=== PATIENT | female | born 1995 | race Caucasian/White ===

== ENCOUNTER → 2017-07-04 11:03 | Outpatient (CLI) | payer OTHER, SELFPAY ==
--- NOTE | 2017-07-04 11:30 | MRI_ITS ---
STUDY: MRI RIGHT KNEE REASON FOR EXAM: Medial right knee pain, history of remote patellar dislocations. TECHNIQUE: Standardized fat and water weighted pulse sequences were obtained in all 3 orthogonal planes. COMPARISON: Radiographs 05/19/2017. FINDINGS: Normal medial meniscus. Normal hyaline cartilage of the medial femorotibial compartment. Normal medial femoral condyle and tibial plateau. Normal medial collateral ligamentous complex (MCL). Normal distal semimembranosus, gracilis and semitendinosus tendons. Normal lateral meniscus. Normal hyaline cartilage of the lateral femorotibial compartment. Normal lateral femoral condyle and tibial plateau. Normal proximal tibiofibular articulation. Normal lateral collateral (fibular) ligament. Normal popliteus tendon. Normal biceps femoris tendon. Normal anterior cruciate ligament (ACL). Normal posterior cruciate ligament (PCL). Normal congruent patellofemoral articulation. Normal hyaline cartilage of the patellofemoral compartment. Normal medial and lateral patellar retinaculum. Normal quadriceps tendon. Normal patellar tendon. Normal Hoffa's fat pad. There is a small joint effusion. There is a small thin medial patellar plica. There is mild edema in the anterior subcutis adipose space. The otherwise visualized osseous structures are unremarkable. MRI/Lower Ext Joint Only (Routine) IMPRESSION: Small joint effusion. No demonstrated medial meniscal tear/internal derangement. Electronically Signed: Amrik Garcia MD at 12:40 EST Tel , Service support ,
== END ==
PROVIDERS: Family Provider Family Medicine; PCP Family Medicine; Visit Provider Orthopaedic Surgery
DX: S83.241A Other tear of medial meniscus, current injury, right knee, initial encounter (principal); M25.361 Other instability, right knee
CPT/HCPCS: 73721

== ENCOUNTER → 2018-03-26 13:17 | Outpatient (CLI) | payer OTHER, SELFPAY | PROVIDERS: Family Provider Family Medicine; PCP Family Medicine; Visit Provider Family Medicine | DX: N30.00 Acute cystitis without hematuria (principal) | CPT/HCPCS: 87086; 87088; 87186 ==

== ENCOUNTER 2018-07-09 12:00 | Outpatient (RCR) | payer OTHER, SELFPAY ==
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
--- NOTE | 2018-05-15 12:21 | HP.PTREVAL ---
Robinson John, [facility], It has been my pleasure to treat BELLE CLEANING over the last 14 visits for R ankle Fx. Please see the progress note below for an update on the physical therapy plan of care! Subjective: Pt reports she is definitely getting better Objective/Function: R ankle pain currently 2/10, increases to 6/10 at worst. R ankle MMT: DF/Inv/Ever= 4-/5 and painful. PF= 5/5. R ankle ROM: DF= 6, PF= 45. Pt is progressing well toward Rx goals Plan Plan: Cont stick rolling and static stretching quads, calves, HSs.. WBAT exercises for R ankle strengthening. CP for pain. Goals Goal 1:: Decrease R ankle pain x 50% to aid with ambulation Goal Time Frame: 4-6 Weeks Goal Progress: Progressing Goal 2:: Increase R ankle strength x 1 grade to aid with stair negotiation Goal Time Frame: 4-6 Weeks Goal Progress: Progressing Goal 3:: Increase R ankle ROM x 30 degrees to aid with restoring a normalized gait pattern Goal Time Frame: 4-6 Weeks Goal Progress: Progressing Goal 4:: I with HEP Goal Time Frame: 4-6 Weeks Goal Progress: Progressing Anticipated Interventions Patient/Client Instruction: Educate patient on: Condition, Plan of Care For the Purpose of:: To improve self management Therapeutic Exercise to Include: Strength training, Endurance training, Balance training, Flexibilty training, Gait and locomotor training, Active ROM, Dynamic Lumbar Stabilization For the Purpose of:: To decrease pain, To increase ROM, To improve muscle performance and motor function Cryotherapy (ice pack, ice massage): Yes For the Purpose of:: To decrease pain Please do not hesitate to contact me at [phone] by phone or if you have questions or concerns regarding this new plan of care! Sincerely, Panda Mena, PT, ATC
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
--- NOTE | 2018-06-11 12:52 | HP.PTDCSUM ---
HP - PT D/C Summary It has been my pleasure to treat BELLE CLEANING under orders from Robinson John DPM, for the diagnosis of R ankle Fx for a total of 19 visit(s). Discharge Date: Please see the following information for a summary of their discharge status. - Subjective Subjective: R ankle pain is improving. Still gets sore with weather changes - Pain R ankle Pain Intensity (Out of 10): 2 R knee Pain Intensity (Out of 10): 2 - Overall Improvement % Improvement: 35 - Objective Objective/Function: R ankle ROM: DF= 12, PF= 40 degrees. R ankle MMT: 5/5 throughout. R ankle pain / this. I with HEP. Rx goals achieved - Goals Goal 1:: Decrease R ankle pain x 50% to aid with ambulation Goal Progress: Progressing Goal 2:: Increase R ankle strength x 1 grade to aid with stair negotiation Goal Progress: Progressing Goal 3:: Increase R ankle ROM x 30 degrees to aid with restoring a normalized gait pattern Goal Progress: Progressing Goal 4:: I with HEP Goal Progress: Progressing - Plan Plan: Discharge - D/C Information If there are questions or concerns regarding this patient's physical therapy, please feel free to call me at [phone]. Thank you for the referral of this patient. Sincerely, Panda Mena, PT, ATC
--- NOTE | 2018-07-09 12:23 | HP.PTDCS(2) ---
HP - PT D/C Summary (2) It has been my pleasure to treat BELLE CLEANING under orders from Robinson John DPM, for the diagnosis of R knee subluxation for a total of 5 visit(s). Discharge Date: Please see the following information for a summary of their discharge status. - Subjective Subjective: Pt reports only minor pain this date. Pt is ready to be discharged. - Objective Objective/Function/Assessment: R knee pain is minimal at 1/10. Pt is I with HEP. R knee strength 5/5 throughout. Rx goals achieved - Goals Patient Goals: Improve Mobility, Improve Function, Decrease Pain, Maneuver Steps, Sleep Normal Goal 1:: Decrease R knee pain x 50% to aid with sleep Goal Progress: Goal Met Goal 2:: Increase R knee strength x 1 grade to aid with stair negotiation Goal Progress: Goal Met Goal 3:: I with HEP Goal Progress: Goal Met - Plan Plan: discharge - D/C Information If there are questions or concerns regarding this patient's physical therapy, please feel free to call me at [phone]. Thank you for the referral of this patient. Sincerely, Panda Mena, PT, ATC
== END 2018-07-09 19:00 | disposition home or self-care (01) ==
LOC: PT 12:00
PROVIDERS: Family Provider Family Medicine; PCP Family Medicine; Referring Provider Podiatrist Foot & Ankle Surgery; Visit Provider Podiatrist Foot & Ankle Surgery
DX: S82.891D Other fracture of right lower leg, subsequent encounter for closed fracture with routine healing (principal); S93.491D Sprain of other ligament of right ankle, subsequent encounter
CPT/HCPCS: 97110; 97162; 97530

== ENCOUNTER → 2018-11-04 | Outpatient (CLI) | payer OTHER, SELFPAY | END | disposition home or self-care (01) | PROVIDERS: Family Provider Family Medicine; PCP Family Medicine; Referring Provider Otolaryngology Otolaryngology/Facial Plastic Surgery; Visit Provider Otolaryngology Otolaryngology/Facial Plastic Surgery | DX: J32.9 Chronic sinusitis, unspecified (principal); J30.9 Allergic rhinitis, unspecified | CPT/HCPCS: 87070; 87077; 87186; 87205 ==